=== PATIENT | male | born 1955 | race African-American/Black ===

== ENCOUNTER 2019-12-07 10:49 | Emergency (ER) | payer SELFPAY ==
[~2019-12-07] VITALS: Ht 185.4 cm; Wt 79.4 kg
[2019-12-07 10:57] VITALS: BP 138/92
[2019-12-07] MEDS ORDERED: TYLENOL325 MG ORAL (11:08)
[2019-12-07] MEDS ORDERED: LIDODERM700 M1 TOPIC (11:08)
[2019-12-07] MEDS ORDERED: IBUPROFEN600 M1 ORAL (11:08)
--- NOTE | 2019-12-07 11:08 | Emergency Room Report ---
History of Present Illness General Chief Complaint: Lower Back Pain or Injury Source: Patient Present Illness HPI 64-year-old male presents with right lower back pain x1.5 weeks patient reports he has similar incident in the past, nontraumatic patient reports achy pain worsened with movement alleviated with rest severity is mild no bowel bladder retention/incontinence, no perineal numbness, no weakness, patient denies any history of IV drug use no history of HIV no fevers no chills no abdominal pain no dysuria patient presents for evaluation of his right lower back pain. Allergies: Coded Allergies: No Known Allergies (Unverified , 12/07/19) COVID-19 Screening Contact w/high risk pt: No Recent Travel to affected area: No Experienced COVID-19 symptoms?: No COVID-19 Testing performed REPRODUCTIVE SURGEON: No Patient History Past Medical History: see triage record Reviewed Nursing Documentation: PMH: Agreed; PSxH: Agreed Nursing Documentation-PM Past Medical History: No Stated History Review of Systems All Other Systems: negative except mentioned in HPI Physical Exam Vital Signs Date Time Temp Pulse Resp B/P (MAP) Pulse Ox O2 Delivery O2 Flow Rate FiO2 12/07/19 10:52 98.2 90 15 138/92 (107) 97 Room Air General Appearance: well appearing, no apparent distress Head: normocephalic, atraumatic ENT: hearing grossly normal, normal voice Neck: full range of motion, supple Respiratory: no respiratory distress, speaking full sentences Genitourinary: no CVA tenderness Musculoskeletal: gait/station normal, other - Back: No midline tenderness, tenderness to palpation right lower lateral back along the muscle, 5-5 strength flex extension at hip, knee, ankle plantar dorsiflexion, bilaterally Neurologic: alert, normal gait Psychiatric: mood/affect normal Skin: no rash Medical Decision Making Diagnostic Impression: Primary Impression: Low back pain Qualified Codes: M54.5 - Low back pain ER Course The patient presents with acute onset of back pain. Clinically this patient can be ruled out for serious pathology given there is a completely normal neurological exam, no history of IV drug use, and no history of bowel or bladder incontinence, no perianal numbness/tingling, no constipation or urinary retention. Once the patient's pain was adequately controlled, the patient was able to ambulate and be discharged in stable condition with anticipatory guidance provided. Differential diagnosis includes lower back pain, epidural abscess, fracture, cauda equina, no evidence of cauda equina no evidence of epidural abscess Patient without dysuria, no clinical signs of UTI CT scan to evaluate his aorta as well as any fractures in the lower back. Patient given lidocaine patch, Toradol shot and Tylenol. Patient given strict return precautions follow-up with PCP CT/MRI/US Diagnostic Results CT/MRI/US Diagnostic Results : Impression Procedure: CT Abdomen Pelvis WO Contrast EXAM: CT CT Abdomen Pelvis WO Contrast INDICATION: Abdominal back pain x2 weeks. Right side greater than left.. COMPARISON: None TECHNIQUE: Axial images were obtained through the abdomen pelvis without intravenous contrast. Sagittal and coronal reformats are generated. All CT scans at this facility are performed using dose modulation techniques as appropriate to a performed exam including the following: automated exposure control with adjustment of the mA and/or kV according to patient size. RADIATION DOSE: CTDIvol: 5.7 mGy DLP: 350.4 mGy-cm Dose information generated by the CT scanner is available in PACS. FINDINGS: Mild scarring or atelectasis noted in the posterior lung bases. The liver and spleen are homogeneous. Gallbladder is without sludge or stone and there is no wall thickening. The pancreas is unremarkable. Adrenals are normal in morphology. There are bilateral small extrarenal pelvis. No hydronephrosis or radiopaque stone seen bilaterally. Small bowel loops are nondistended. Mild increased stool lucencies noted throughout the colon. The appendix is normal. There is no free fluid or free air. No pathologic adenopathy demonstrated. There is mild diffuse wall thickening of the bladder noted in association with is slightly enlarged prostate. This may be related to chronic low-grade outlet obstruction. Please correlate clinically to exclude cystitis. There is no suspicious superficial soft tissue or osseous abnormality. IMPRESSION: NO SIGN OF ACUTE DISEASE IN THE ABDOMEN AND PELVIS. ENLARGED PROSTATE AND MILDLY THICKENED URINARY BLADDER WALL LIKELY RELATED TO CHRONIC LOW-GRADE BLADDER OUTLET OBSTRUCTION. PLEASE CORRELATE CLINICALLY TO EXCLUDE CYSTITIS. Dictated By: Dewey Wasserman MD Electronically Signed By: Dewey Wasserman MD Signed Date/Time 12/07/19 8306 CC: Gerardo Mendez MD Last Vital Signs Date Time Temp Pulse Resp B/P (MAP) Pulse Ox O2 Delivery O2 Flow Rate FiO2 12/07/19 10:57 98.2 15 138/92 97 Room Air 12/07/19 10:52 90 Disposition: HOME, SELF-CARE Condition: Stable Scripts Lidocaine Patch* (Lidoderm Patch*) 1 Each Adh..patch 1 PATCH TOPIC DAILY, #7 PATCH 0 Refills Patch(es) may remain in place for up to 12 hours in any 24-hour period. Prov: Gerardo Mendez MD 12/07/19 Acetaminophen (Tylenol) 325 Mg Tablet 650 MG ORAL Q6H PRN for Prn Pain/Headache/Temp > 101, #30 TAB 0 Refills Prov: Gerardo Mendez MD 12/07/19 Ibuprofen* (MOTRIN*) 600 Mg Tablet 600 MG ORAL Q8H PRN for FOR PAIN, #30 TAB 0 Refills Prov: Gerardo Mendez MD 12/07/19 Referrals: NOT CHOSEN IPA/,REFERRING (PCP) [facility] Patient Instructions: Back Pain, Adult Additional Instructions: The patient was provided with discharge instructions, notified to follow-up with a primary care doctor and or specialist in the next 24-48 hours, and to return to the ED if they have worsening of their symptoms. Please note that this report is being documented using [employer] technology. This can lead to erroneous entry secondary to incorrect interpretation by the dictating instrument. Gerardo Mendez MD Dec 07, 2019 11:08
[2019-12-07] MEDS ORDERED: Ketorolac 30mg Inj IM ONE (11:15)
[2019-12-07] MEDS ORDERED: Acetaminophen 500mg (ES) tab ORAL ONE (11:15)
--- NOTE | 2019-12-07 11:42 | Diagnostic Imaging Report ---
EXAM: CT CT Abdomen Pelvis WO Contrast INDICATION: Abdominal back pain x2 weeks. Right side greater than left.. COMPARISON: None TECHNIQUE: Axial images were obtained through the abdomen pelvis without intravenous contrast. Sagittal and coronal reformats are generated. All CT scans at this facility are performed using dose modulation techniques as appropriate to a performed exam including the following: automated exposure control with adjustment of the mA and/or kV according to patient size. RADIATION DOSE: CTDIvol: 5.7 mGy DLP: 350.4 mGy-cm Dose information generated by the CT scanner is available in PACS. FINDINGS: Mild scarring or atelectasis noted in the posterior lung bases. The liver and spleen are homogeneous. Gallbladder is without sludge or stone and there is no wall thickening. The pancreas is unremarkable. Adrenals are normal in morphology. There are bilateral small extrarenal pelvis. No hydronephrosis or radiopaque stone seen bilaterally. Small bowel loops are nondistended. Mild increased stool lucencies noted throughout the colon. The appendix is normal. There is no free fluid or free air. No pathologic adenopathy demonstrated. There is mild diffuse wall thickening of the bladder noted in association with is slightly enlarged prostate. This may be related to chronic low-grade outlet obstruction. Please correlate clinically to exclude cystitis. There is no suspicious superficial soft tissue or osseous abnormality. IMPRESSION: NO SIGN OF ACUTE DISEASE IN THE ABDOMEN AND PELVIS. ENLARGED PROSTATE AND MILDLY THICKENED URINARY BLADDER WALL LIKELY RELATED TO CHRONIC LOW-GRADE BLADDER OUTLET OBSTRUCTION. PLEASE CORRELATE CLINICALLY TO EXCLUDE CYSTITIS.
[2019-12-07 12:02] VITALS: BP 136/94
== END 2019-12-07 12:02 | disposition home or self-care (01) ==
LOC: EMR 11:04
DX: M54.5 Low back pain (principal)
CPT/HCPCS: 74176; 96372; 99284; J1885